=== PATIENT | male | born 1940 | race Caucasian/White ===

== ENCOUNTER 2017-03-20 06:53 | Day surgery (SDC) | payer MEDICARE, OTHER ==
[2017-03-19 13:17] LABS: Urine RBC None Seen /hpf (0 - 3)
[2017-03-19 13:25] LABS: Basophils # (auto) 0 uL; Basophils % (auto) 0.5 % (0.0-2.0); Eosinophils # (auto) 0.4 uL; Eosinophils % (auto) 4.7 % (0.0-7.0); Hematocrit 41.8 % (41.0-53.0); Lymphocytes % (auto) 24.3 % (10.0-50.0); Mean Corpuscular Hemoglobin 29.6 pg (28.0-32.0); Mean Corpuscular Hgb Conc. 33.4 g/dL (32.0-36.0); Mean Corpuscular Volume 88.7 fL (80.0-100.0); Mean Platelet Volume 8.3 fL (7.4-10.4); Monocytes # (auto) 0.8 uL; Monocytes % (auto) 9.3 % (0.0-12.0); Neutrophils # (auto) 5.1 uL; Neutrophils % (auto) 61.2 % (37.0-80.0); Platelet Count (auto) 467 10^3/uL (140-450); Red Cell Distribution Width 15.3 % (11.6-16.0); White Blood Cell 8.4 10^3/uL (4.4-10.8)
[2017-03-19 13:34] LABS: Urine Bilirubin Negative (Negative); Urine Blood Negative /uL (Negative); Urine Ca Oxalate Crystal FEW (None Seen); Urine Color Yellow (Yellow); Urine Glucose Normal (Normal); Urine Hyaline Cast FEW /lpf (0 - 2); Urine Ketone Negative (Negative); Urine Mucus FEW (None Seen); Urine Nitrite Negative (Negative); Urine Squamous Epithelial Cell FEW /hpf (<5); Urine Urobilinogen Normal (Negative)
[2017-03-19 13:40] LABS: INR 1.09 (0.9-1.15); Prothrombin Time 11.8 sec (9.37-12.3)
[2017-03-19 14:06] LABS: Albumin 2.9 g/dL (3.4-5.0); BUN/Creatinine Ratio 17.7; Bilirubin, Total 0.5 mg/dL (0.2-1.0); Calcium 9.5 mg/dL (8.5-10.1); Potassium 3.6 mmol/L (3.5-5.1); Total Protein 7.8 g/dL (6.4-8.2)
[~2017-03-20] VITALS: Ht 172.7 cm; Wt 74.8 kg
[~2017-03-20 06:53] MED LIST: AMLO5TAB2 PO; BUPR75TA9 PO; DONE10TA37 PO; FAMO-12 PO; HYDR-4663 PO; MORP30TA PO; MULTCHW3 OR; OMEG100078 PO
[2017-03-20] MEDS ORDERED: ceFAZolin 1GM/50ML D5W 50 ML IV ONE (07:45)
[2017-03-20] MEDS ORDERED: fentaNYL CITRATE 100 MCG/2 ML VL ONE ×2 (08:43→09:21)
[2017-03-20] MEDS ORDERED: MIDAZOLAM HCL 1MG/1ML-2 ML VIAL ONE ×2 (08:44→09:21)
[2017-03-20] MEDS ORDERED: ONDANSETRON HCL 4 MG/2 ML VIAL ONE (08:44)
[2017-03-20] MEDS ORDERED: PROPOFOL 10 MG/ML 20 ML IV ONE ×2 (08:44→09:31)
[2017-03-20] MEDS ORDERED: BUPIVACAINE 0.75% INJ 10ML MPV SDV IJ ONE (09:11)
[2017-03-20] MEDS ORDERED: ceFAZolin 1GM VL ONE (09:11)
[2017-03-20] MEDS ORDERED: NEOMYCIN-BACITRACIN-POLYM 15GM TOP OINT TOP ONE (09:11)
[2017-03-20] MEDS ORDERED: MEPERIDINE HCL (50 MG/ML) 1 ML VIAL ONE (09:21)
[2017-03-20] MEDS ORDERED: DEXAMETHASONE SOD PHOS 10MG/1ML VIAL INJ ONE (09:31)
[2017-03-20] MEDS ORDERED: methylPREDNISolone ACETATE 80 MG/ML VL ONE (09:33)
[2017-03-20] MEDS ORDERED: BUPIVACAINE W/ EPINEPH 0.25% INJ 50ML MDV ONE (09:33)
[2017-03-20] MEDS ORDERED: MORPHINE SULF INJ 2 MG/ML SYRINGE 1ML IV PRN (10:00)
[2017-03-20] MEDS ORDERED: KETOROLAC TROMETH 30 MG/ML 1ML VIAL IV ONE (10:00)
[2017-03-20] MEDS ORDERED: ONDANSETRON HCL 4 MG/2 ML VIAL IV ONE (10:00)
[2017-03-20] MEDS ORDERED: ePHEDrine SULFATE 50 MG/ML AMP IV PRN (10:00)
[2017-03-20] MEDS ORDERED: HYDROmorphone HCL 2 MG/ML VL IV PRN (10:00)
[2017-03-20] MEDS ORDERED: LABETALOL HCL 5 MG/ML 4ML SYRINGE IV PRN (10:00)
[2017-03-20] MEDS ORDERED: MIDAZOLAM HCL 1MG/1ML-2 ML VIAL IV PRN (10:00)
[2017-03-20 11:24] VITALS: BP 135/74
== END 2017-03-20 11:34 | disposition home or self-care (01) ==
LOC: SUR 06:53
PROVIDERS: ATTEND Podiatrist Foot & Ankle Surgery
DX: M65.871 Other synovitis and tenosynovitis, right ankle and foot (principal); M94.8X7 Other specified disorders of cartilage, ankle and foot; F41.9 Anxiety disorder, unspecified; F32.9 Major depressive disorder, single episode, unspecified; Z87.891 Personal history of nicotine dependence
CPT/HCPCS: 29895; 36415; 80053; 81001; 85025; 85610; 85730; 88305; 93306; J0690; J1040; J1100; J2175; J2250; J2405; J2704; J3010; J3490; L3260; V2790

== ENCOUNTER → 2017-05-01 | Outpatient (CLI) | payer MEDICARE, OTHER | END | disposition home or self-care (01) | LOC: Rad HDHVI 09:01 | PROVIDERS: ATTEND Internal Medicine Cardiovascular Disease | DX: I50.23 Acute on chronic systolic (congestive) heart failure (principal) | CPT/HCPCS: 93306 ==

== ENCOUNTER → 2017-05-17 | Outpatient (CLI) | payer MEDICARE, OTHER ==
[~2017-05-17] MED LIST changes: +READI-CAT 2 (BARIUM SULF)(VANILLA SMOOTHIE) 450ML ONE
== END | disposition home or self-care (01) ==
LOC: Rad HDHVI 08:53
PROVIDERS: ATTEND Internal Medicine Cardiovascular Disease
DX: R10.9 Unspecified abdominal pain (principal); Z79.1 Long term (current) use of non-steroidal anti-inflammatories (NSAID); Z79.82 Long term (current) use of aspirin
CPT/HCPCS: 74176

== ENCOUNTER 2017-09-11 14:37 | Emergency (ER) | payer MEDICARE, OTHER ==
[~2017-09-11] VITALS: Ht 172.7 cm; Wt 75.7 kg
[~2017-09-11 14:37] MED LIST changes: -HYDR-4663 PO; +HYDR-4683 PO; -READI-CAT 2 (BARIUM SULF)(VANILLA SMOOTHIE) 450ML ONE
[2017-09-11 15:05] VITALS: BP 142/75
[2017-09-11 15:38] LABS: Basophils # (auto) 0.1 uL; Basophils % (auto) 0.7 % (0.0-2.0); Eosinophils # (auto) 0.4 uL; Eosinophils % (auto) 5.9 % (0.0-7.0); Hematocrit 40.1 % (41.0-53.0); Hemoglobin 13.5 g/dL (13.5-17.5); Lymphocytes # (auto) 1.6 uL; Lymphocytes % (auto) 21.2 % (10.0-50.0); Mean Corpuscular Hemoglobin 29.9 pg (28.0-32.0); Mean Corpuscular Hgb Conc. 33.6 g/dL (32.0-36.0); Mean Corpuscular Volume 89.1 fL (80.0-100.0); Monocytes # (auto) 0.7 uL; Monocytes % (auto) 9.1 % (0.0-12.0); Neutrophils # (auto) 4.6 uL; Neutrophils % (auto) 63.1 % (37.0-80.0); Nucleated Red Blood Cells % 0.1 %; Platelet Count (auto) 200 10^3/uL (140-450); Red Cell Distribution Width 15.4 % (11.8-14.3); White Blood Cell 7.4 10^3/uL (4.4-10.8)
[2017-09-11 15:54] LABS: Alanine Aminotransferase 24 U/L (16-61); Albumin 2.6 g/dL (3.4-5.0); Anion Gap 9 (5-15); Aspartate Aminotransferase 20 U/L (15-37); BUN/Creatinine Ratio 19.2; Blood Urea Nitrogen 19 mg/dL (7-18); Carbon Dioxide 28 mmol/L (21-32); Chloride 100 mmol/L (98-107); GFR African American 95 mL/min; GFR Non-African American 78 mL/min; Glucose 113 mg/dL (74-106); Potassium 3.3 mmol/L (3.5-5.1); Sodium 137 mmol/L (136-145)
[2017-09-11 15:59] LABS: Alkaline Phosphatase 102 U/L (45-117); Bilirubin, Total 0.4 mg/dL (0.2-1.0); Total Protein 6.7 g/dL (6.4-8.2)
== END 2017-09-11 16:23 | disposition left against medical advice (07) ==
LOC: ER 14:37 → EDBD 14:37 → ER 16:21
DX: R53.1 Weakness (principal); R42 Dizziness and giddiness; Z53.21 Procedure and treatment not carried out due to patient leaving prior to being seen by health care provider
CPT/HCPCS: 36415; 80053; 83735; 84484; 85025; 93005

== ENCOUNTER → 2017-09-25 | Outpatient (CLI) | payer MEDICARE, OTHER ==
[~2017-09-25] MED LIST changes: +ASPI81TA27 PO; +KETOROLAC TROMETH 60MG/2ML VIAL IM ONE
[2017-09-25 15:44] VITALS: BP 142/62
[2017-09-25 15:55] VITALS: BP 109/73
== END | disposition home or self-care (01) ==
LOC: CHF HDHVI 14:55
PROVIDERS: ATTEND Internal Medicine Cardiovascular Disease
DX: I70.0 Atherosclerosis of aorta (principal); R06.02 Shortness of breath
CPT/HCPCS: 71020; 96372; G0463; J1885

== ENCOUNTER 2017-09-26 21:20 | Emergency (ER) | payer MEDICARE, OTHER ==
[~2017-09-26] VITALS: Ht 172.7 cm; Wt 83.9 kg
[~2017-09-26 21:20] MED LIST changes: -ASPI81TA27 PO; -KETOROLAC TROMETH 60MG/2ML VIAL IM ONE
[2017-09-26] MEDS ORDERED: ASPI81TA27 PO (22:06)
[2017-09-26 22:44] LABS: Basophils # (auto) 0.1 uL; Basophils % (auto) 0.7 % (0.0-2.0); Eosinophils # (auto) 0.4 uL; Eosinophils % (auto) 3.4 % (0.0-7.0); Hematocrit 44.1 % (41.0-53.0); Hemoglobin 14.7 g/dL (13.5-17.5); Lymphocytes # (auto) 2.7 uL; Lymphocytes % (auto) 21.7 % (10.0-50.0); Mean Corpuscular Hgb Conc. 33.4 g/dL (32.0-36.0); Mean Corpuscular Volume 89.8 fL (80.0-100.0); Mean Platelet Volume 8.2 fL (6.9-10.8); Monocytes # (auto) 1.1 uL; Monocytes % (auto) 8.7 % (0.0-12.0); Neutrophils # (auto) 8.1 uL; Neutrophils % (auto) 65.5 % (37.0-80.0); Nucleated Red Blood Cells % 0.1 %; Platelet Count (auto) 263 10^3/uL (140-450); Red Cell Distribution Width 15.3 % (11.8-14.3); White Blood Cell 12.4 10^3/uL (4.4-10.8)
[2017-09-26 23:05] LABS: Albumin 3.2 g/dL (3.4-5.0); Anion Gap 8 (5-15); Aspartate Aminotransferase 28 U/L (15-37); BUN/Creatinine Ratio 18.3; Blood Urea Nitrogen 19 mg/dL (7-18); Calcium 9.1 mg/dL (8.5-10.1); Carbon Dioxide 28 mmol/L (21-32); Chloride 106 mmol/L (98-107); GFR African American 89 mL/min; GFR Non-African American 74 mL/min; Glucose 95 mg/dL (74-106); Potassium 3.6 mmol/L (3.5-5.1); Sodium 142 mmol/L (136-145)
[2017-09-26 23:07] LABS: Lactic Acid w/Reflex 2.1 mmol/L (0.4-2.0)
[2017-09-26 23:09] LABS: Alkaline Phosphatase 104 U/L (45-117); Bilirubin, Total 0.3 mg/dL (0.2-1.0); Total Protein 7.7 g/dL (6.4-8.2)
[2017-09-26 23:14] LABS: REFLEX LACTIC ACID YES OR NO YES
[2017-09-26 23:16] LABS: B-Type Natriuretic Peptide 33.79 pg/mL (0-100)
[2017-09-26 23:18] LABS: Temperature: 22.3 C (20.0-25.0)
[2017-09-27] MEDS ORDERED: LORazepam 0.5 MG TAB PO ONE (01:15)
[2017-09-27 03:59] VITALS: BP 117/62
== END 2017-09-27 04:21 | disposition home or self-care (01) ==
LOC: ER 21:20
DX: F41.9 Anxiety disorder, unspecified (principal); I10 Essential (primary) hypertension; F32.9 Major depressive disorder, single episode, unspecified; F03.90 Unspecified dementia, unspecified severity, without behavioral disturbance, psychotic disturbance, mood disturbance, and anxiety; E78.5 Hyperlipidemia, unspecified; I25.2 Old myocardial infarction; Z79.82 Long term (current) use of aspirin; Z86.73 Personal history of transient ischemic attack (TIA), and cerebral infarction without residual deficits
CPT/HCPCS: 36415; 71020; 80053; 83605; 83880; 84484; 85025; 87040; 93005

== ENCOUNTER → 2017-12-26 | Outpatient (CLI) | payer MEDICARE, OTHER ==
[~2017-12-26] VITALS: Ht 172.7 cm; Wt 74.4 kg
[~2017-12-26] MED LIST changes: +ASPI81TA27 PO; -DONE10TA37 PO; +DONE10TA40 PO
== END | disposition home or self-care (01) ==
LOC: Rad HDHVI 13:58
PROVIDERS: ATTEND Internal Medicine Cardiovascular Disease
DX: I10 Essential (primary) hypertension (principal); J44.9 Chronic obstructive pulmonary disease, unspecified; R07.89 Other chest pain; G47.30 Sleep apnea, unspecified; R00.2 Palpitations; M79.7 Fibromyalgia; Z79.899 Other long term (current) drug therapy
CPT/HCPCS: 78452; 93017; 96374; A9500

== ENCOUNTER → 2018-01-01 | Outpatient (CLI) | payer MEDICARE, OTHER | END | disposition home or self-care (01) | LOC: Rad HDHVI 08:21 | PROVIDERS: ATTEND Internal Medicine Cardiovascular Disease | DX: R07.89 Other chest pain (principal); R00.2 Palpitations | CPT/HCPCS: 93306 ==

== ENCOUNTER → 2018-01-03 | Outpatient (CLI) | payer MEDICARE, OTHER ==
[~2018-01-03] MED LIST changes: +READI-CAT 2 (BARIUM SULF)(VANILLA SMOOTHIE) 450ML ONE
== END | disposition home or self-care (01) ==
LOC: Rad HDHVI 11:53
PROVIDERS: ATTEND Internal Medicine Cardiovascular Disease
DX: K57.30 Diverticulosis of large intestine without perforation or abscess without bleeding (principal); I71.4 Abdominal aortic aneurysm, without rupture; K44.9 Diaphragmatic hernia without obstruction or gangrene; K40.90 Unilateral inguinal hernia, without obstruction or gangrene, not specified as recurrent
CPT/HCPCS: 74176

== ENCOUNTER → 2018-01-08 | Outpatient (CLI) | payer MEDICARE, OTHER ==
[~2018-01-08] MED LIST changes: -READI-CAT 2 (BARIUM SULF)(VANILLA SMOOTHIE) 450ML ONE
[2018-01-08 16:25] LABS: BUN/Creatinine Ratio 20.9; Calcium 8.2 mg/dL (8.5-10.1); Potassium 3.6 mmol/L (3.5-5.1)
[2018-01-08 16:28] LABS: Basophils # (auto) 0.1 uL; Basophils % (auto) 0.6 % (0.0-2.0); Eosinophils # (auto) 0.7 uL; Eosinophils % (auto) 8.2 % (0.0-7.0); Hematocrit 41.2 % (41.0-53.0); Hemoglobin 13.6 g/dL (13.5-17.5); Lymphocytes # (auto) 1.7 uL; Lymphocytes % (auto) 19.1 % (10.0-50.0); Mean Corpuscular Hemoglobin 30.2 pg (28.0-32.0); Mean Corpuscular Hgb Conc. 33.1 g/dL (32.0-36.0); Mean Corpuscular Volume 91.1 fL (80.0-100.0); Monocytes # (auto) 0.7 uL; Monocytes % (auto) 7.9 % (0.0-12.0); Neutrophils # (auto) 5.9 uL; Neutrophils % (auto) 64.2 % (37.0-80.0); Nucleated Red Blood Cells % 0.2 %; Platelet Count (auto) 227 10^3/uL (140-450); Red Blood Cells 4.52 10^6/uL (4.5-5.90); Red Cell Distribution Width 16.4 % (11.8-14.3); White Blood Cell 9.1 10^3/uL (4.4-10.8)
[2018-01-08 17:15] LABS: INR 1.03 (0.9-1.15); Partial Thromboplastin Time 22.2 sec (22.64-33.71); Prothrombin Time 11.2 sec (9.37-12.3)
== END | disposition home or self-care (01) ==
LOC: LAB 11:44
PROVIDERS: ATTEND Internal Medicine Cardiovascular Disease
DX: Z01.812 Encounter for preprocedural laboratory examination (principal); I10 Essential (primary) hypertension; D64.9 Anemia, unspecified; N39.0 Urinary tract infection, site not specified; R79.1 Abnormal coagulation profile
CPT/HCPCS: 36415; 80048; 85025; 85610; 85730; 87086; 87088

== ENCOUNTER 2018-08-11 06:06 | Emergency (ER) | payer MEDICARE, OTHER ==
[~2018-08-11] VITALS: Ht 172.7 cm; Wt 81.2 kg
[~2018-08-11 06:06] MED LIST changes: -KETOROLAC TROMETH 30 MG/ML 1ML VIAL IV ONE; -KETOROLAC TROMETH 60MG/2ML VIAL IM ONE; -MAGNESIUM SULFATE 1GM/100ML 100 ML IV ONE; -MAGNESIUM SULFATE 1GM/100ML 100 ML IV SCH; -MVI in SODIUM CHLORIDE 0.9% 1,000 ML IVB ONE; -MVI in SODIUM CHLORIDE 0.9% 1,010 ML ONE; -ONDANSETRON HCL 4 MG/2 ML VIAL IV ONE; -ONDANSETRON HCL 4 MG/2 ML VIAL ONE
[2018-08-11 07:08] LABS: Basophils # (auto) 0.1 uL; Basophils % (auto) 0.7 % (0.0-2.0); Eosinophils # (auto) 0.4 uL; Eosinophils % (auto) 3.6 % (0.0-7.0); Hematocrit 48.3 % (41.0-53.0); Hemoglobin 16.1 g/dL (13.5-17.5); Lymphocytes # (auto) 2.3 uL; Lymphocytes % (auto) 21.8 % (10.0-50.0); Mean Corpuscular Hemoglobin 29.5 pg (28.0-32.0); Mean Corpuscular Hgb Conc. 33.4 g/dL (32.0-36.0); Mean Corpuscular Volume 88.3 fL (80.0-100.0); Monocytes # (auto) 0.9 uL; Monocytes % (auto) 8.7 % (0.0-12.0); Neutrophils % (auto) 65.2 % (37.0-80.0); Platelet Count (auto) 244 10^3/uL (140-450); Red Blood Cells 5.47 10^6/uL (4.5-5.90); Red Cell Distribution Width 15.3 % (11.8-14.3); White Blood Cell 10.7 10^3/uL (4.4-10.8)
[2018-08-11 07:37] LABS: Alanine Aminotransferase 20 U/L (16-61); Albumin 3.2 g/dL (3.4-5.0); Anion Gap 10 (5-15); Aspartate Aminotransferase 18 U/L (15-37); BUN/Creatinine Ratio 13.9; Blood Urea Nitrogen 17 mg/dL (7-18); Calcium 8.3 mg/dL (8.5-10.1); Carbon Dioxide 24 mmol/L (21-32); Chloride 105 mmol/L (98-107); GFR African American 74 mL/min; GFR Non-African American 61 mL/min; Glucose 119 mg/dL (74-106); Sodium 139 mmol/L (136-145)
[2018-08-11 07:42] LABS: Alkaline Phosphatase 109 U/L (45-117); Bilirubin, Total 0.8 mg/dL (0.2-1.0); Total Protein 7.5 g/dL (6.4-8.2)
[2018-08-11] MEDS: LABETALOL HCL 5 MG/ML ML 20ML VIAL IV ONE (08:01)
[2018-08-11] MEDS: ASPirin 81 mg TAB PO ONE (08:11)
[2018-08-11] MEDS: cloNIDine HCL 0.1 MG TAB PO ONE (09:01)
[2018-08-11 10:03] VITALS: BP 132/73
== END 2018-08-11 10:05 | disposition home or self-care (01) ==
LOC: ER 06:08
DX: I10 Essential (primary) hypertension (principal); I25.2 Old myocardial infarction; G45.9 Transient cerebral ischemic attack, unspecified; Z90.89 Acquired absence of other organs; Z98.61 Coronary angioplasty status; Z79.899 Other long term (current) drug therapy
CPT/HCPCS: 36415; 71046; 80053; 83735; 84484; 85025; 96374

== ENCOUNTER → 2018-08-11 | Outpatient (CLI) | payer MEDICARE, OTHER ==
[~2018-08-11] MED LIST changes: +AMLO5TAB13 PO; -AMLO5TAB2 PO; +KETOROLAC TROMETH 30 MG/ML 1ML VIAL IV ONE; +KETOROLAC TROMETH 60MG/2ML VIAL IM ONE; +MAGNESIUM SULFATE 1GM/100ML 100 ML IV ONE; +MAGNESIUM SULFATE 1GM/100ML 100 ML IV SCH; +MVI in SODIUM CHLORIDE 0.9% 1,000 ML IVB ONE; +MVI in SODIUM CHLORIDE 0.9% 1,010 ML ONE; +ONDANSETRON HCL 4 MG/2 ML VIAL IV ONE; +ONDANSETRON HCL 4 MG/2 ML VIAL ONE
[2018-08-11 15:00] VITALS: BP 123/64
[2018-08-11 16:22] LABS: Basophils # (auto) 0.1 uL; Basophils % (auto) 0.5 % (0.0-2.0); Eosinophils # (auto) 0.1 uL; Hematocrit 44.4 % (41.0-53.0); Hemoglobin 14.9 g/dL (13.5-17.5); Lymphocytes # (auto) 1.9 uL; Lymphocytes % (auto) 18.6 % (10.0-50.0); Mean Corpuscular Hemoglobin 29.7 pg (28.0-32.0); Mean Corpuscular Hgb Conc. 33.6 g/dL (32.0-36.0); Mean Corpuscular Volume 88.5 fL (80.0-100.0); Monocytes # (auto) 0.7 uL; Monocytes % (auto) 6.4 % (0.0-12.0); Neutrophils # (auto) 7.5 uL; Neutrophils % (auto) 73.5 % (37.0-80.0); Nucleated Red Blood Cells % 0.1 %; Platelet Count (auto) 234 10^3/uL (140-450); Red Blood Cells 5.02 10^6/uL (4.5-5.90); Red Cell Distribution Width 15.3 % (11.8-14.3); Urine Blood Negative /uL (Negative); White Blood Cell 10.2 10^3/uL (4.4-10.8)
[2018-08-11 16:31] LABS: BUN/Creatinine Ratio 14.5; Calcium 7.9 mg/dL (8.5-10.1); Potassium 4.6 mmol/L (3.5-5.1)
== END | disposition home or self-care (01) ==
LOC: CHF HDHVI 12:34
PROVIDERS: ATTEND Internal Medicine Cardiovascular Disease
DX: D64.9 Anemia, unspecified (principal); I10 Essential (primary) hypertension; N39.0 Urinary tract infection, site not specified; Z79.899 Other long term (current) drug therapy
CPT/HCPCS: 36415; 80048; 81003; 85025; 87086; 96365; 96366; 96368; 96372; 96375; G0463; J1885; J2405; J3411; J3475

== ENCOUNTER 2019-01-27 19:35 | Emergency (ER) | payer MEDICARE, OTHER ==
[~2019-01-27] VITALS: Ht 172.7 cm; Wt 77.1 kg
[2019-01-27 21:48] LABS: Basophils # (auto) 0 uL; Basophils % (auto) 0.4 % (0.0-2.0); Eosinophils # (auto) 0.4 uL; Hematocrit 39.1 % (41.0-53.0); Hemoglobin 12.8 g/dL (13.5-17.5); Lymphocytes # (auto) 1.1 uL; Lymphocytes % (auto) 9.9 % (10.0-50.0); Mean Corpuscular Hemoglobin 28.6 pg (28.0-32.0); Mean Corpuscular Hgb Conc. 32.7 g/dL (32.0-36.0); Mean Corpuscular Volume 87.5 fL (80.0-100.0); Monocytes # (auto) 0.9 uL; Neutrophils # (auto) 8.6 uL; Neutrophils % (auto) 77.7 % (37.0-80.0); Platelet Count (auto) 292 10^3/uL (140-450); Red Blood Cells 4.47 10^6/uL (4.5-5.90); Red Cell Distribution Width 16.5 % (11.8-14.3); White Blood Cell 11.1 10^3/uL (4.4-10.8)
[2019-01-27 22:06] LABS: Alanine Aminotransferase 16 U/L (16-61); Albumin 2.5 g/dL (3.4-5.0); Anion Gap 8 (5-15); Aspartate Aminotransferase 16 U/L (15-37); BUN/Creatinine Ratio 17.6; Blood Urea Nitrogen 18 mg/dL (7-18); Calcium 8.3 mg/dL (8.5-10.1); Carbon Dioxide 26 mmol/L (21-32); Chloride 107 mmol/L (98-107); GFR African American 91 mL/min; GFR Non-African American 75 mL/min; Glucose 90 mg/dL (74-106); Potassium 4.3 mmol/L (3.5-5.1); Sodium 141 mmol/L (136-145)
[2019-01-27 22:09] LABS: Alkaline Phosphatase 128 U/L (45-117); Bilirubin, Total 0.5 mg/dL (0.2-1.0); INR 1.07 (0.9-1.15); Prothrombin Time 11.4 sec (9.27-12.13); Total Protein 7.1 g/dL (6.4-8.2)
[2019-01-27] MEDS ORDERED: IOHEXOL 350 MG/ML 100ML IJ ONE (22:27)
[2019-01-28 04:50] VITALS: BP 104/65
== END 2019-01-28 07:31 | disposition home or self-care (01) ==
LOC: EDBD 19:35 → ER 19:43
DX: M25.571 Pain in right ankle and joints of right foot (principal); I73.9 Peripheral vascular disease, unspecified; E78.5 Hyperlipidemia, unspecified; I10 Essential (primary) hypertension; I25.2 Old myocardial infarction; Z86.73 Personal history of transient ischemic attack (TIA), and cerebral infarction without residual deficits; Z98.61 Coronary angioplasty status; Z88.6 Allergy status to analgesic agent
CPT/HCPCS: 36415; 75635; 80053; 83880; 84484; 85025; 85379; 85610; 99284; Q9967

== ENCOUNTER 2019-02-09 07:23 | Inpatient (IN) | payer MEDICARE, OTHER ==
[2019-02-05 12:56] LABS: Basophils # (auto) 0 uL; Basophils % (auto) 0.4 % (0.0-2.0); Eosinophils # (auto) 0.5 uL; Eosinophils % (auto) 5.8 % (0.0-7.0); Hematocrit 39.2 % (41.0-53.0); Hemoglobin 12.5 g/dL (13.5-17.5); INR 1.07 (0.9-1.15); Lymphocytes # (auto) 1.2 uL; Lymphocytes % (auto) 14.4 % (10.0-50.0); Mean Corpuscular Hemoglobin 27.9 pg (28.0-32.0); Mean Corpuscular Hgb Conc. 31.9 g/dL (32.0-36.0); Mean Corpuscular Volume 87.4 fL (80.0-100.0); Monocytes # (auto) 0.7 uL; Monocytes % (auto) 8.9 % (0.0-12.0); Neutrophils # (auto) 5.7 uL; Neutrophils % (auto) 70.5 % (37.0-80.0); Nucleated Red Blood Cells % 0.1 %; Partial Thromboplastin Time 30.3 sec (23.78-33.04); Platelet Count (auto) 326 10^3/uL (140-450); Prothrombin Time 11.4 sec (9.27-12.13); Red Blood Cells 4.48 10^6/uL (4.5-5.90); Red Cell Distribution Width 16.7 % (11.8-14.3); White Blood Cell 8.1 10^3/uL (4.4-10.8)
[2019-02-05 13:03] LABS: BUN/Creatinine Ratio 13.8; Calcium 8.9 mg/dL (8.5-10.1); Potassium 4.7 mmol/L (3.5-5.1)
[2019-02-05 13:06] LABS: Urine Bacteria NONE SEEN /hpf (None Seen); Urine Blood Negative /uL (Negative); Urine Mucus FEW (None Seen); Urine Specific Gravity 1.026 (1.001-1.035); Urine WBC 3 /hpf (0 - 3)
[2019-02-05 13:10] LABS: Bilirubin, Total 0.4 mg/dL (0.2-1.0); Total Protein 7.2 g/dL (6.4-8.2)
[2019-02-05 13:15] LABS: Albumin 2.3 g/dL (3.4-5.0)
[~2019-02-09] VITALS: Ht 167.6 cm; Wt 79.8 kg
[~2019-02-09 07:23] MED LIST changes: -AMLO5TAB13 PO; -ASPI81TA27 PO; -BUPR75TA9 PO; -FAMO-12 PO; -HYDR-4683 PO; +HYDR-531 PO; -MORP30TA PO; -OMEG100078 PO; +ONDA4TAB5 PO
[2019-02-09] MEDS ORDERED: ceFAZolin 1GM/50ML 50 ML IV ONE (08:18)
[2019-02-09] MEDS ORDERED: ETOMIDATE (2MG/ML) 20ML VIAL IV ONE (08:34)
[2019-02-09] MEDS ORDERED: MIDAZOLAM HCL 1MG/1ML-2 ML VIAL ONE (08:34)
[2019-02-09] MEDS ORDERED: LIDOCAINE 1% (LOCAL ANESTH.) PF 5ml SDV ONE (09:20)
[2019-02-09] MEDS ORDERED: ROCURONIUM 10MG/ML 10ML VIAL IV ONE (09:24)
[2019-02-09] MEDS ORDERED: fentaNYL CITRATE 100 MCG/2 ML VL ONE (09:51)
[2019-02-09] MEDS ORDERED: hydrALAZINE HCL 20 MG/ML VL ONE (10:17)
[2019-02-09] MEDS ORDERED: NEOSTIGMINE 1 MG/ML INJ (10mg/10ML VIAL) ONE (11:48)
[2019-02-09] MEDS ORDERED: GLYCOPYRROLATE 0.2 MG/ML 1ML VIAL ONE (11:48)
[2019-02-09] MEDS ORDERED: MEPERIDINE HCL (50 MG/ML) 1 ML VIAL ONE (11:54)
[2019-02-09] MEDS ORDERED: HYDROmorphone HCL 2 MG/ML VL IV PRN ×2 (12:15→12:45)
[2019-02-09] MEDS ORDERED: OXYCODONE W/ ACETAMINOPHEN 5/325MG TABLET PO PRN (12:15)
[2019-02-09] MEDS ORDERED: MORPHINE SULF INJ 2 MG/ML SYRINGE 1ML IV PRN ×2 (12:15→13:00)
[2019-02-09] MEDS ORDERED: ONDANSETRON HCL 4 MG/2 ML VIAL IV PRN ×2 (12:15→13:00)
[2019-02-09] MEDS ORDERED: NITROGLYCERIN 0.4 MG SL TAB SL PRN ×2 (12:15→13:00)
[2019-02-09] MEDS ORDERED: HYDROmorphone HCL 2 MG/ML VL ONE (12:31)
[2019-02-09] MEDS: HYDROmorphone HCL 2 MG/ML VL IV PRN ×5 (12:35→18:29)
[2019-02-09] MEDS ORDERED: hydrALAZINE HCL 20 MG/ML VL IV PRN (12:45)
[2019-02-09] MEDS ORDERED: NALOXONE HCL 0.4 MG/ML VIAL IV PRN (12:45)
[2019-02-09] MEDS ORDERED: ONDANSETRON HCL 4 MG/2 ML VIAL IV ONE (12:45)
[2019-02-09] MEDS ORDERED: CYCLOBENZAPRINE HCL 10 MG TAB PO PRN (13:00)
[2019-02-09 15:00] VITALS: BP 166/96
--- NOTE | 2019-02-09 15:00 | NUR ---
Med/Surg admit from PACU FELISHA WILLIAMSON admitted to Med/Surg unit after SBAR received. Patient oriented to Nicolette Gill, primary RN, unit, room, bed, and unit policies regarding patient care and visiting hours. Patient placed on 2 LPM/NC, o2 saturation 96%. No signs of SOB/distress noted. Narvaez cath intact, patent and draining clear, pale yellow urine to gravity. Cast to right foot clean, dry and intact. Safety precautions in place including, bed set to lowest position/locked, bedside rails up x2, bed alarm on, call light within reach. Instructed patient to call for assistance. Patient verbalized understanding. Will continue to monitor q 1hr and prn.
[2019-02-09 16:00] VITALS: BP 166/96
[2019-02-09] MEDS: ceFAZolin 1GM/50ML 50 ML IV SCH (18:15)
[2019-02-09] MEDS: CLINDAMYCIN 600MG IV 50 ML IV SCH (18:18)
[2019-02-09] MEDS: TAMSULOSIN HYDROCHLORIDE 0.4 MG CAP PO SCH (18:19)
--- NOTE | 2019-02-09 19:30 | NUR ---
RECEIVED PATIENT IN BED, AAOX4. NO DISTRESS NOTED. AFEBRILE. MILD PAIN ON THE RIGHT ANKLE, BUT TOLERABLE. ELEVATED FOOT ON A PILLOW. NVS ON THE RIGHT FOOT IS WNL. PATIENT IS ABLE TO TURN FROM SIDE TO SIDE. POCS DISCUSSED WITH PATIENT AND SHOWED UNDERSTANDING. BED KEPT ON LOWEST POSITION. SIDE RAILS UP. CALL LIGHT/TABLE IN REACH. KEPT COMFORTABLE.
--- NOTE | 2019-02-09 19:48 | NUR ---
ENDORSED CARE TO DAVE THORNTON.
[2019-02-09] MEDS: LACTATED RINGER'S 1,000 ML IV SCH ×2 (19:53→21:33)
[2019-02-09] MEDS: DONEPEZIL HYDROCHLORIDE 5 MG TAB PO SCH (21:32)
[2019-02-09] MEDS: DOCUSATE SOD 100 MG CAP PO SCH (21:32)
[2019-02-09] MEDS: OXYCODONE W/ ACETAMINOPHEN 5/325MG TABLET PO PRN (21:32)
[2019-02-09 22:00] VITALS: BP 150/97
[2019-02-10] MEDS: ceFAZolin 1GM/50ML 50 ML IV SCH (00:01)
[2019-02-10] MEDS: CLINDAMYCIN 600MG IV 50 ML IV SCH ×2 (00:01→05:30)
[2019-02-10 05:00] VITALS: BP 128/74
[2019-02-10] MEDS: LACTATED RINGER'S 1,000 ML IV SCH ×2 (05:30→18:11)
[2019-02-10] MEDS: OXYCODONE W/ ACETAMINOPHEN 5/325MG TABLET PO PRN ×3 (05:31→20:48)
--- NOTE | 2019-02-10 06:08 | NUR ---
ON BED, ASLEEP. STABLE. NO DISTRESS NOTED. FOR MORE CARE AND MANAGEMENT.
--- NOTE | 2019-02-10 07:25 | NUR ---
OPENING NOTES ASSUMED CARE OF PT. PT IS LAYING ON BED, HOB LOW-FOWLERS. A&O X4. ON 2 LPM/NC, O2 SATURATION 95%. NO SIGNS OF SOB/DISTRESS NOTED. TORRES CATH INTACT, PATENT AND DRAINING CLEAR STRAW YELLOW URINE TO GRAVITY. CAST TO RIGHT FOOT CLEAN, DRY AND INTACT. SAFETY PRECAUTIONS IN PLACE INCLUDING, BED SET TO LOWEST POSITION/LOCKED. BEDSIDE RAILS UP X2. BED ALARM ON. CALL LIGHT WITHIN REACH. INSTRUCTED PT TO CALL FOR ASSISTANCE. DISCUSSED POC WITH PT. PT VERBALIZED UNDERSTANDING. WILL CONTINUE TO MONITOR Q 1HR AND PRN.
[2019-02-10 07:34] VITALS: BP 91/65
[2019-02-10 08:20] LABS: Basophils # (auto) 0 uL; Basophils % (auto) 0.3 % (0.0-2.0); Eosinophils # (auto) 0 uL; Eosinophils % (auto) 0.3 % (0.0-7.0); Hematocrit 33.1 % (41.0-53.0); Hemoglobin 10.9 g/dL (13.5-17.5); Lymphocytes % (auto) 9.1 % (10.0-50.0); Mean Corpuscular Hgb Conc. 32.9 g/dL (32.0-36.0); Mean Corpuscular Volume 85.3 fL (80.0-100.0); Monocytes # (auto) 1.4 uL; Monocytes % (auto) 12.4 % (0.0-12.0); Neutrophils # (auto) 8.9 uL; Neutrophils % (auto) 77.9 % (37.0-80.0); Platelet Count (auto) 297 10^3/uL (140-450); Red Blood Cells 3.88 10^6/uL (4.5-5.90); Red Cell Distribution Width 17.5 % (11.8-14.3); White Blood Cell 11.4 10^3/uL (4.4-10.8)
[2019-02-10 08:37] LABS: BUN/Creatinine Ratio 10.6; Calcium 7.6 mg/dL (8.5-10.1); Potassium 3.9 mmol/L (3.5-5.1)
[2019-02-10 08:40] LABS: Bilirubin, Total 0.9 mg/dL (0.2-1.0); Total Protein 6.4 g/dL (6.4-8.2)
[2019-02-10] MEDS: DOCUSATE SOD 100 MG CAP PO SCH ×2 (09:39→21:51)
[2019-02-10] MEDS: HCTZ 25 MG TAB PO SCH (09:40)
[2019-02-10] MEDS: amLODIPine BESYLATE 5 MG TAB PO SCH (10:00)
[2019-02-10 11:28] VITALS: BP 143/77
--- NOTE | 2019-02-10 14:24 | NUR ---
Pt. is a 78 year old, alert and oriented male who resides with his . Pt. is able to function independently and states that his Selina prepares his meals. Pt. states he has a granddaughter who lives in the area. Pt.'s primary physician is Dr. Phelan and will be provided with transportation by his . Pt. will be returning home upon discharge. Addendum: 02/10/19 at 1434 by NED ODELL SS Amended: Links added.
[2019-02-10 16:43] VITALS: BP 133/73
[2019-02-10] MEDS: TAMSULOSIN HYDROCHLORIDE 0.4 MG CAP PO SCH (18:14)
[2019-02-10] MEDS: HYDROmorphone HCL 2 MG/ML VL IV PRN (18:15)
--- NOTE | 2019-02-10 19:10 | NUR ---
Opening Shift Note Bed side report with day RN Katherine Assumed care of patient, awake and alert. No S/S of distress/SOB or pain. Instructed on POC and to call for assist PRN, will continue to monitor for changes Q1hr and PRN. Bed locked and in lowest position, bed alarm, call light within reach. Patient right leg in cast, pt states feels sensation no complaint of numbness or tingling.
--- NOTE | 2019-02-10 19:37 | NUR ---
ENDORSED CARE TO DAVE WHITTAKER.
[2019-02-10] MEDS: DONEPEZIL HYDROCHLORIDE 5 MG TAB PO SCH (21:51)
--- NOTE | 2019-02-10 21:54 | NUR ---
Cooling Measures applied. Patient currently has temp of 100.1 , cooling measures in place.
[2019-02-10 22:00] VITALS: BP 114/66
--- NOTE | 2019-02-10 22:54 | NUR ---
REASSESS TEMP 98.9 pt will continue to monitor pt
[2019-02-11] MEDS: LACTATED RINGER'S 1,000 ML IV SCH ×2 (04:11→14:11)
[2019-02-11 05:00] VITALS: BP 149/86
[2019-02-11 07:11] LABS: Basophils # (auto) 0 uL; Basophils % (auto) 0.3 % (0.0-2.0); Eosinophils # (auto) 0.3 uL; Eosinophils % (auto) 2.1 % (0.0-7.0); Hematocrit 34.3 % (41.0-53.0); Lymphocytes # (auto) 1.7 uL; Lymphocytes % (auto) 14.3 % (10.0-50.0); Mean Corpuscular Hemoglobin 27.4 pg (28.0-32.0); Mean Corpuscular Volume 85.5 fL (80.0-100.0); Monocytes # (auto) 1.2 uL; Monocytes % (auto) 9.6 % (0.0-12.0); Neutrophils # (auto) 8.9 uL; Neutrophils % (auto) 73.7 % (37.0-80.0); Platelet Count (auto) 302 10^3/uL (140-450); Red Blood Cells 4.01 10^6/uL (4.5-5.90); Red Cell Distribution Width 17.3 % (11.8-14.3)
--- NOTE | 2019-02-11 07:20 | NUR ---
OPENING NOTES ASSUMED CARE OF PT. PT IS LAYING ON BED, HOB LOW-FOWLERS. A&O X4. ON 2 LPM/NC, O2 SATURATION 96%. NO SIGNS OF SOB/DISTRESS NOTED. TORRES CATH INTACT, PATENT AND DRAINING CLEAR STRAW YELLOW URINE TO GRAVITY. CAST TO RIGHT FOOT CLEAN, DRY AND INTACT. SAFETY PRECAUTIONS IN PLACE INCLUDING, BED SET TO LOWEST POSITION/LOCKED. BEDSIDE RAILS UP X2. BED ALARM ON. CALL LIGHT WITHIN REACH. INSTRUCTED PT TO CALL FOR ASSISTANCE. DISCUSSED POC WITH PT. PT VERBALIZED UNDERSTANDING. WILL CONTINUE TO MONITOR Q 1HR AND PRN.
[2019-02-11 07:35] LABS: Potassium 4.8 mmol/L (3.5-5.1)
[2019-02-11 07:43] LABS: BUN/Creatinine Ratio 14.5; Bilirubin, Total 0.6 mg/dL (0.2-1.0); Calcium 8.3 mg/dL (8.5-10.1); Total Protein 6.9 g/dL (6.4-8.2)
--- NOTE | 2019-02-11 08:41 | NUR ---
Pt is an alert and oriented male that resides with his spouse Selina in their own home. Pt has a fww in the home but is not on any home health services. Pt states he does not want placement after discharge and prefers to return home. Pt is receptive to home health services for physical therapy and medication management upon discharge. Additionally, pt states his is able to care for him and can transport him home. Will follow up with spouse regarding ability to do the above. Addendum: 02/12/19 at 0844 by BHAVNA ALAN Amended: Links added.
--- NOTE | 2019-02-11 08:51 | NUR ---
SPOKE WITH VALERY FROM [facility], PATIENTS WOUND CX IS POSITIVE FOR MRSA. Addendum: 02/11/19 at 1122 by Nicolette Gill RN WILL INFORM
[2019-02-11 09:00] VITALS: BP 153/70
[2019-02-11] MEDS: DOCUSATE SOD 100 MG CAP PO SCH ×2 (10:40→21:42)
[2019-02-11] MEDS: HCTZ 25 MG TAB PO SCH (10:40)
[2019-02-11] MEDS: amLODIPine BESYLATE 5 MG TAB PO SCH (10:41)
[2019-02-11] MEDS: RIVAROXABAN 10 MG TAB PO SCH (10:41)
[2019-02-11] MEDS: OXYCODONE W/ ACETAMINOPHEN 5/325MG TABLET PO PRN ×2 (10:43→17:46)
[2019-02-11 13:00] VITALS: BP 106/65
[2019-02-11 17:00] VITALS: BP 105/67
[2019-02-11] MEDS: TAMSULOSIN HYDROCHLORIDE 0.4 MG CAP PO SCH (17:45)
[2019-02-11] MEDS: CLINDAMYCIN 600MG IV 50 ML IV SCH (21:41)
[2019-02-11] MEDS: DONEPEZIL HYDROCHLORIDE 5 MG TAB PO SCH (21:42)
[2019-02-11 21:43] VITALS: BP 121/69
[2019-02-12] MEDS: LACTATED RINGER'S 1,000 ML IV SCH ×3 (00:11→22:00)
[2019-02-12] MEDS: HYDROmorphone HCL 2 MG/ML VL IV PRN (00:25)
--- NOTE | 2019-02-12 01:51 | NUR ---
Opening Shift Note Report received from RN GEORGIE Assumed care of patient, awake and alert. No S/S of distress/SOB or pain. Instructed on POC and to callfor assist PRN, will continue to monitor for changes Q1hr and PRN.
--- NOTE | 2019-02-12 01:52 | NUR ---
ENDORSED CARE TO DAVE WHITTAKER.
[2019-02-12 04:41] VITALS: BP 117/63
[2019-02-12] MEDS: CLINDAMYCIN 600MG IV 50 ML IV SCH (05:23)
[2019-02-12 06:45] LABS: Hematocrit 32.9 % (41.0-53.0); Hemoglobin 10.8 g/dL (13.5-17.5)
[2019-02-12 08:00] VITALS: BP 104/64
[2019-02-12 09:21] LABS: INR 1.21 (0.9-1.15); Prothrombin Time 12.8 sec (9.27-12.13)
[2019-02-12] MEDS: DOCUSATE SOD 100 MG CAP PO SCH ×2 (09:24→22:00)
[2019-02-12] MEDS: RIVAROXABAN 10 MG TAB PO SCH (09:24)
[2019-02-12] MEDS: amLODIPine BESYLATE 5 MG TAB PO SCH (09:24)
[2019-02-12] MEDS: HCTZ 25 MG TAB PO SCH (09:24)
--- NOTE | 2019-02-12 10:55 | NUR ---
PICC LINE RN AT BEDSIDE.
--- NOTE | 2019-02-12 12:08 | NUR ---
PICC line placement Patient/Patient significant other educated on need for PICC line placement. All risks and benefits explained and all questions and concerns addressed prior to procedure. Noted past medical history and allergies with no contraindications. INR and Plt counts within acceptable range. 4 fr PICC line inserted via right basilic vein using [employer]'s [employer] US and Tip Location System. Sterile technique with maximum barrier precautions utilized. Blood return obtained from the lumen and flushed easily with NS using proper technique. PICC secured with Stat-lock; biodisc and occlusive dressing applied. Stat portable chest x-ray obtained for PICC tip placement. *Baseline Arm Circumference 28cm. Internal length 40cm. External length 2cm. PICC lot # [id number]. Note: Placed easily x1 attempt by Marisel Chery RN
[2019-02-12] MEDS ORDERED: LIDOCAINE 1% (LOCAL ANESTH.) PF 5ml SDV ID ONE (12:15)
[2019-02-12] MEDS ORDERED: VANCOMYCIN PER PHARMACY 0 MG IV SCH (12:30)
--- NOTE | 2019-02-12 13:36 | NUR ---
OK to use PICC line Xray completed. PRIMARY RN NOTIFIED.
[2019-02-12] MEDS: VANCOMYCIN 1,250 MG in D5W 5% 250 ML IV SCH (13:52)
--- NOTE | 2019-02-12 16:15 | NUR ---
PT HAS TEMP 100.5. COOLING MEASURE INITIATED. DR. RODRIGUEZ PAGED. AWAITING RESPONSE.
--- NOTE | 2019-02-12 16:26 | NUR ---
OBTAINED NEW ORDER FROM DR. RODRIGUEZ. TYLENOL 650MG PO QID PRN. WILL CARRY OUT ORDER.
[2019-02-12] MEDS ORDERED: ACETAMINOPHEN 325 MG TAB PO PRN (16:30)
[2019-02-12 16:49] VITALS: BP 105/60
[2019-02-12] MEDS: TAMSULOSIN HYDROCHLORIDE 0.4 MG CAP PO SCH (17:55)
--- NOTE | 2019-02-12 18:10 | NUR ---
TEMP. 98.2. PT RESTING IN BED, GRANDDAUGHTER AT BEDSIDE. DENIED OF PAIN OR ANY DISCOMFORT AT THIS TIME. WILL CONTINUE CARE.
--- NOTE | 2019-02-12 19:45 | NUR ---
Opening shift note: Assumed care from day nurse. Patient is alert and oriented x 3. Patient denies any pain. no s/s of distress or sob. Narvaez is to gravity and patent drain yellow urine. Right leg cast is dry and intact and vascular status is within normal limits. Call light is within reach. Picc line to right upper arm is patent, clean and dry. Left 20g IV is leaking and will be Dc'd. Patient was instructed on poc and told to call for assistance as needed. Bed is locked and in lowest position with bed alarm on.
--- NOTE | 2019-02-12 20:35 | NUR ---
IV removal IV DC'd Left forearm 20G with clean sterile technique, catheter fully intact. Pressure dressing applied to site. Patient tolerated well.
[2019-02-12 22:00] VITALS: BP 138/78
[2019-02-12] MEDS: DONEPEZIL HYDROCHLORIDE 5 MG TAB PO SCH (22:00)
[2019-02-12] MEDS: SODIUM CHLOR 0.9% PF (SALINE LOCK) 10ML VIAL/SYR IV SCH (22:00)
[2019-02-13] MEDS: LACTATED RINGER'S 1,000 ML IV SCH ×3 (04:05→16:13)
[2019-02-13 05:00] VITALS: BP 111/59
--- NOTE | 2019-02-13 07:20 | NUR ---
CLOSING SHIFT NOTE: ENDORSED CARE TO DAY NURSE VAN. PATIENT STABLE AT THIS TIME. NO S/S OF DISTRESS OR SOB.
[2019-02-13 08:00] VITALS: BP 160/76
[2019-02-13 08:30] VITALS: BP 160/76
[2019-02-13] MEDS: amLODIPine BESYLATE 5 MG TAB PO SCH (09:55)
[2019-02-13] MEDS: HCTZ 25 MG TAB PO SCH (09:55)
[2019-02-13] MEDS: DOCUSATE SOD 100 MG CAP PO SCH ×2 (09:55→21:18)
[2019-02-13] MEDS: RIVAROXABAN 10 MG TAB PO SCH (09:56)
[2019-02-13] MEDS: SODIUM CHLOR 0.9% PF (SALINE LOCK) 10ML VIAL/SYR IV SCH ×2 (09:56→21:17)
--- NOTE | 2019-02-13 13:02 | NUR ---
NUTRITION ASSESSMENT NOTES Please refer to link notes of nutrition screen form filed under the intervention section of the plan of care for further details. Est. Needs: 1600 kcal to 2000 kcal (25-30 kcal/kgBW), 80 gms to 104 gms pro (1.0-1.3 gms/kgBW d/t severe hypoalbuminemia). Will continue to monitor pertinent labs and reassess nutrient need prn Thank you. Addendum: 02/13/19 at [address] Amended: Links added.
[2019-02-13 13:20] VITALS: BP 129/75
--- NOTE | 2019-02-13 14:01 | NUR ---
Per Selina Ortega, pt.'s spouse states that she can not provide him with assistance or proper care at this time. Selina feels that a SNF placement at [facility] would be best, because pt. is on bedrest and isolation. Pt. was secured a bed at [facility] and awaiting D/C orders. Per nurse Terrence Kaur will be conducting a debridement procedure on Saturday02/15/2019.
[2019-02-13] MEDS: VANCOMYCIN 1,250 MG in D5W 5% 250 ML IV SCH (15:22)
--- NOTE | 2019-02-13 15:48 | NUR ---
Addendum: Pt. requested to go to [facility]. Submitted pt.'s request and Beni from [facility] called to decline their request for placement because she stated pt. and his Selina were rude with staff. Beni also stated the pt. and his Selina were non compliant and left AMA. Addendum: 02/13/19 at 1554 by NED ALAN Amended: Links added.
[2019-02-13 17:05] VITALS: BP 127/62
[2019-02-13] MEDS: TAMSULOSIN HYDROCHLORIDE 0.4 MG CAP PO SCH (17:48)
--- NOTE | 2019-02-13 19:11 | NUR ---
Opening Shift Note Assumed care of patient, awake and alert. No S/S of distress/SOB or pain. Instructed on POC and to call for assist PRN, will continue to monitor for changes Q1hr and PRN. Side rails up x2. Bed locked in lowest position. Call light within reach.
--- NOTE | 2019-02-13 19:21 | NUR ---
CARE ENDORSED TO TAMMIE ACOSTA.
[2019-02-13] MEDS: HYDROmorphone HCL 2 MG/ML VL IV PRN (20:25)
[2019-02-13] MEDS: DONEPEZIL HYDROCHLORIDE 5 MG TAB PO SCH (21:17)
[2019-02-13 22:00] VITALS: BP 152/94
--- NOTE | 2019-02-14 02:29 | NUR ---
Rounds Patient in bed asleep with no signs of distress/sob/pain. Will continue to monitor.
[2019-02-14 05:00] VITALS: BP 116/64
--- NOTE | 2019-02-14 07:29 | NUR ---
Endorsed care to day shift RN. Patient in bed asleep with no signs of distress.
[2019-02-14 07:51] LABS: Albumin 1.8 g/dL (3.4-5.0); BUN/Creatinine Ratio 18.2; Calcium 8.1 mg/dL (8.5-10.1); Potassium 3.7 mmol/L (3.5-5.1)
[2019-02-14 07:54] LABS: Bilirubin, Total 0.4 mg/dL (0.2-1.0)
[2019-02-14 07:56] LABS: Basophils # (auto) 0.1 uL; Basophils % (auto) 0.5 % (0.0-2.0); Eosinophils # (auto) 0.4 uL; Eosinophils % (auto) 3.8 % (0.0-7.0); Hematocrit 32.6 % (41.0-53.0); Hemoglobin 10.7 g/dL (13.5-17.5); Lymphocytes # (auto) 1.6 uL; Lymphocytes % (auto) 14.4 % (10.0-50.0); Mean Corpuscular Hemoglobin 27.8 pg (28.0-32.0); Mean Corpuscular Hgb Conc. 32.7 g/dL (32.0-36.0); Mean Corpuscular Volume 84.9 fL (80.0-100.0); Monocytes # (auto) 0.9 uL; Monocytes % (auto) 8.5 % (0.0-12.0); Neutrophils # (auto) 7.9 uL; Neutrophils % (auto) 72.8 % (37.0-80.0); Platelet Count (auto) 313 10^3/uL (140-450); Red Blood Cells 3.84 10^6/uL (4.5-5.90); Red Cell Distribution Width 16.9 % (11.8-14.3); White Blood Cell 10.9 10^3/uL (4.4-10.8)
[2019-02-14 08:54] VITALS: BP 118/57
[2019-02-14] MEDS: HCTZ 25 MG TAB PO SCH (10:00)
[2019-02-14] MEDS: DOCUSATE SOD 100 MG CAP PO SCH ×2 (10:10→22:27)
[2019-02-14] MEDS: SODIUM CHLOR 0.9% PF (SALINE LOCK) 10ML VIAL/SYR IV SCH ×2 (10:10→22:27)
[2019-02-14] MEDS: amLODIPine BESYLATE 5 MG TAB PO SCH (10:11)
[2019-02-14] MEDS: OXYCODONE W/ ACETAMINOPHEN 5/325MG TABLET PO PRN ×2 (10:12→18:10)
[2019-02-14 12:26] VITALS: BP 107/53
[2019-02-14] MEDS: LACTATED RINGER'S 1,000 ML IV SCH ×2 (14:04→22:11)
[2019-02-14] MEDS: VANCOMYCIN 1,250 MG in D5W 5% 250 ML IV SCH (14:31)
[2019-02-14 16:52] VITALS: BP 95/50
[2019-02-14] MEDS: TAMSULOSIN HYDROCHLORIDE 0.4 MG CAP PO SCH (18:09)
--- NOTE | 2019-02-14 19:00 | NUR ---
Opening Shift Note Assumed care of patient, awake and alert. No S/S of distress/SOB or pain. Instructed on POC and to call for assist PRN, will continue to monitor for changes Q1hr and PRN.
[2019-02-14 22:00] VITALS: BP 121/61
[2019-02-14] MEDS: DONEPEZIL HYDROCHLORIDE 5 MG TAB PO SCH (22:26)
[2019-02-14] MEDS: HYDROmorphone HCL 2 MG/ML VL IV PRN (22:26)
[2019-02-15 05:03] VITALS: BP 120/71
[2019-02-15] MEDS ORDERED: LIDOCAINE HCL 2% TOP JELLY 5ML TOP ONE (07:31)
[2019-02-15] MEDS ORDERED: ONDANSETRON HCL 4 MG/2 ML VIAL ONE (07:31)
[2019-02-15] MEDS ORDERED: LIDOCAINE 2% (LOCAL ANESTH.) PF 5ml SDV ONE (07:31)
[2019-02-15] MEDS ORDERED: fentaNYL CITRATE 100 MCG/2 ML VL ONE (07:31)
[2019-02-15] MEDS ORDERED: MIDAZOLAM HCL 1MG/1ML-2 ML VIAL ONE (07:31)
[2019-02-15] MEDS ORDERED: PROPOFOL 10 MG/ML 20 ML IV ONE (07:31)
[2019-02-15] MEDS ORDERED: SODIUM CHLORIDE LOCK 10 ML ONE (07:31)
[2019-02-15] MEDS ORDERED: BACITRACIN INJ 50000 UNIT VIAL ONE (07:37)
--- NOTE | 2019-02-15 08:05 | NUR ---
patient off the unit.
[2019-02-15] MEDS ORDERED: MORPHINE SULF INJ 2 MG/ML SYRINGE 1ML IV PRN (08:45)
[2019-02-15] MEDS ORDERED: ONDANSETRON HCL 4 MG/2 ML VIAL IV PRN (08:45)
[2019-02-15] MEDS ORDERED: HYDROcodone-ACET 5/325MG TAB PO PRN (08:45)
[2019-02-15] MEDS ORDERED: NITROGLYCERIN 0.4 MG SL TAB SL PRN (08:45)
[2019-02-15] MEDS ORDERED: HYDROmorphone HCL 2 MG/ML VL IV PRN ×2 (08:45→09:00)
[2019-02-15 09:00] VITALS: BP 122/69
[2019-02-15] MEDS ORDERED: METOCLOPRAMIDE HCL 5MG/ml INJ 2ml VIAL IV ONE (09:00)
--- NOTE | 2019-02-15 09:06 | NUR ---
Received report from PACU, patient stable will be coming up.
[2019-02-15] MEDS: DOCUSATE SOD 100 MG CAP PO SCH ×4 (10:00→22:18)
[2019-02-15] MEDS: HCTZ 25 MG TAB PO SCH (11:33)
[2019-02-15] MEDS: SODIUM CHLOR 0.9% PF (SALINE LOCK) 10ML VIAL/SYR IV SCH ×2 (11:33→22:18)
[2019-02-15] MEDS: amLODIPine BESYLATE 5 MG TAB PO SCH (11:34)
[2019-02-15] MEDS: OXYCODONE W/ ACETAMINOPHEN 5/325MG TABLET PO PRN ×3 (11:39→22:19)
[2019-02-15] MEDS ORDERED: CLINDAMYCIN 600MG IV 50 ML IV SCH (12:00)
[2019-02-15] MEDS ORDERED: VANCOMYCIN 1,250 MG in D5W 5% 250 ML IV SCH (12:00)
[2019-02-15 13:59] VITALS: BP 140/62
[2019-02-15 17:00] VITALS: BP 120/64
[2019-02-15] MEDS: VANCOMYCIN 1,250 MG in D5W 5% 250 ML IV SCH (17:07)
--- NOTE | 2019-02-15 18:05 | NUR ---
RE: PHARMACY CALL RECEIVED CALL FROM PHARMACY AND SUGGESTED TO DISCONTINUE THE CLEOCIN, PATIENT ON ALREADY ON VANCO AND HAVE MRSA. WILL INFORM MD OF THE SUGGESTION .
--- NOTE | 2019-02-15 18:07 | NUR ---
ORDERS TO ASHUTOSH LINK FROM
[2019-02-15] MEDS: TAMSULOSIN HYDROCHLORIDE 0.4 MG CAP PO SCH (18:31)
[2019-02-15] MEDS: LACTATED RINGER'S 1,000 ML IV SCH (20:00)
[2019-02-15 22:00] VITALS: BP 137/68
[2019-02-15] MEDS: DONEPEZIL HYDROCHLORIDE 5 MG TAB PO SCH (22:18)
[2019-02-16] MEDS: LACTATED RINGER'S 1,000 ML IV SCH (04:44)
[2019-02-16 05:00] VITALS: BP 124/83
[2019-02-16 06:17] LABS: Basophils # (auto) 0.1 uL; Basophils % (auto) 0.5 % (0.0-2.0); Eosinophils # (auto) 0.5 uL; Eosinophils % (auto) 4.7 % (0.0-7.0); Hematocrit 31.9 % (41.0-53.0); Hemoglobin 10.4 g/dL (13.5-17.5); Lymphocytes # (auto) 1.8 uL; Lymphocytes % (auto) 16.2 % (10.0-50.0); Mean Corpuscular Hemoglobin 27.6 pg (28.0-32.0); Mean Corpuscular Hgb Conc. 32.4 g/dL (32.0-36.0); Mean Corpuscular Volume 84.9 fL (80.0-100.0); Monocytes # (auto) 1.1 uL; Monocytes % (auto) 9.7 % (0.0-12.0); Neutrophils # (auto) 7.7 uL; Neutrophils % (auto) 68.9 % (37.0-80.0); Platelet Count (auto) 319 10^3/uL (140-450); Red Blood Cells 3.76 10^6/uL (4.5-5.90); White Blood Cell 11.2 10^3/uL (4.4-10.8)
--- NOTE | 2019-02-16 08:29 | NUR ---
Opening Shift Note Assumed care of patient, awake and alert. No S/S of distress/SOB or pain. Instructed on POC,nursing routines and discharge plan to SNF and to call for assist PRN, will continue to monitor for changes Q1hr and PRN. Side rails up x2. Bed locked in lowest position. Call light within reach,patient [id number] instructed to call for assistance,verbalized understanding.
[2019-02-16 09:00] VITALS: BP 129/74
[2019-02-16] MEDS ORDERED: RIVAROXABAN 10 MG TAB PO SCH ×2 (10:00)
[2019-02-16] MEDS: DOCUSATE SOD 100 MG CAP PO SCH ×2 (10:00→10:50)
[2019-02-16] MEDS: amLODIPine BESYLATE 5 MG TAB PO SCH (10:51)
[2019-02-16] MEDS: HCTZ 25 MG TAB PO SCH (10:52)
[2019-02-16] MEDS: SODIUM CHLOR 0.9% PF (SALINE LOCK) 10ML VIAL/SYR IV SCH (10:53)
--- NOTE | 2019-02-16 11:54 | NUR ---
Pt. has been accepted at [facility] and will be followed by Dr. Lundy. Kathi at [facility] will be following up with transportation, tentatively set up for 4pm.
[2019-02-16 12:26] VITALS: BP 119/59
[2019-02-16] MEDS: VANCOMYCIN 1,250 MG in D5W 5% 250 ML IV SCH (12:32)
--- NOTE | 2019-02-16 13:43 | NUR ---
MD CALLED DR. ARCINIEGA CALLED,INFORMED OF MESSAGE FROM PHARMACY RE PATIENT RESISTANT TO CLINDAMYCIN AND INCREASE GABE FROM VANCOMYCIN INFORMED PATIENT TRANSFER TO SNF Around 4 pm,RECEIVED ORDER TO CONTINUE ALL MEDICATION AND ANCILLARY SERVICES ORDER.
--- NOTE | 2019-02-16 14:25 | NUR ---
ADIA WILLIAMSON NOTIFIED OF TRANSFER TO [facility]
--- NOTE | 2019-02-16 16:50 | NUR ---
[facility] AND CONTINUATION OF CARE
[2019-02-16 17:14] VITALS: BP 127/73
--- NOTE | 2019-02-16 17:20 | NUR ---
TRANSFERRED TO [facility] VIA GURNEY TRANSPORTED BY [facility],NO DISTRESS NO DISCOMFORT WITH PICC LINE TO RIGHT UPPER ARM INTACT AND TORRES CATHETER.
== END 2019-02-16 17:20 | DRG 463 ==
LOC: SUR 07:23 → EAST 16:10
PROVIDERS: ADMIT Orthopaedic Surgery; ATTEND Orthopaedic Surgery
PROC: 0QUG0JZ Supplement Right Tibia with Synthetic Substitute, Open Approach (ICD-10-PCS; 2019-02-09)
PROC: 02HV33Z Insertion of Infusion Device into Superior Vena Cava, Percutaneous Approach (ICD-10-PCS; 2019-02-09)
PROC: 0HRMXK3 Replacement of Right Foot Skin with Nonautologous Tissue Substitute, Full Thickness, External Approach (ICD-10-PCS; principal; 2019-02-09 09:34)
PROC: 0SPF0JZ Removal of Synthetic Substitute from Right Ankle Joint, Open Approach (ICD-10-PCS; 2019-02-09 09:34)
PROC: 2W0 Placement, Anatomical Regions, Change (ICD-10-PCS; 2019-02-15)
DX: T84.018A Broken internal joint prosthesis, other site, initial encounter (principal); E43 Unspecified severe protein-calorie malnutrition; T81.31XA Disruption of external operation (surgical) wound, not elsewhere classified, initial encounter; I10 Essential (primary) hypertension; F03.90 Unspecified dementia, unspecified severity, without behavioral disturbance, psychotic disturbance, mood disturbance, and anxiety; S82.301A Unspecified fracture of lower end of right tibia, initial encounter for closed fracture; Y83.8 Other surgical procedures as the cause of abnormal reaction of the patient, or of later complication, without mention of misadventure at the time of the procedure; B95.62 Methicillin resistant Staphylococcus aureus infection as the cause of diseases classified elsewhere; D64.9 Anemia, unspecified; I25.10 Atherosclerotic heart disease of native coronary artery without angina pectoris; M19.90 Unspecified osteoarthritis, unspecified site; F41.9 Anxiety disorder, unspecified; F31.9 Bipolar disorder, unspecified; Z91.19 Patient's noncompliance with other medical treatment and regimen; J44.9 Chronic obstructive pulmonary disease, unspecified; M81.0 Age-related osteoporosis without current pathological fracture; X58.XXXA Exposure to other specified factors, initial encounter; Z79.82 Long term (current) use of aspirin; Z82.49 Family history of ischemic heart disease and other diseases of the circulatory system; Y92.89 Other specified places as the place of occurrence of the external cause; Y93.89 Activity, other specified; Y99.8 Other external cause status; Z86.73 Personal history of transient ischemic attack (TIA), and cerebral infarction without residual deficits; Z68.28 Body mass index [BMI] 28.0-28.9, adult; Z90.49 Acquired absence of other specified parts of digestive tract; Z87.891 Personal history of nicotine dependence; Z95.5 Presence of coronary angioplasty implant and graft; I25.2 Old myocardial infarction
CPT/HCPCS: 36415; 36569; 71045; 73600; 76000; 80053; 80202; 81001; 85014; 85018; 85025; 85610; 85730; 86850; 86900; 86901; 87070; 87075; 87077; 87186; 87205; 93005; G0378; J0690; J2001; J2250; J2405; J2704; J3490; J7060

== ENCOUNTER 2021-09-20 17:42 | Inpatient (IN) | payer MEDICARE, OTHER ==
[~2021-09-20] VITALS: Ht 170.2 cm; Wt 67.4 kg
[~2021-09-20 17:42] MED LIST changes: -DONE10TA40 PO; +DONE1TAB88 PO; +ONDA-144 PO; -ONDA4TAB5 PO
[2021-09-20 18:46] LABS: Basophils # (auto) 0 10 ^3/uL (0-0.2); Basophils % (auto) 0.2 % (0.0-2.0); Eosinophils # (auto) 0.1 10 ^3/uL (0-0.8); Eosinophils % (auto) 0.9 % (0.0-7.0); Hematocrit 37.9 % (41.0-53.0); Hemoglobin 12.5 g/dL (13.5-17.5); Lymphocytes # (auto) 0.8 10 ^3/uL (0.4-5.4); Lymphocytes % (auto) 5.9 % (10.0-50.0); Mean Corpuscular Hemoglobin 29.5 pg (28.0-32.0); Mean Corpuscular Hgb Conc. 32.9 g/dL (32.0-36.0); Mean Corpuscular Volume 89.8 fL (80.0-100.0); Monocytes % (auto) 7.5 % (0.0-12.0); Neutrophils # (auto) 11.3 10 ^3/uL (1.6-8.6); Neutrophils % (auto) 85.5 % (37.0-80.0); Nucleated Red Blood Cells % 0.1 %; Red Blood Cells 4.22 10^6/uL (4.5-5.90); Red Cell Distribution Width 15.3 % (11.8-14.3); White Blood Cell 13.3 10^3/uL (4.4-10.8)
[2021-09-20 19:03] LABS: Calcium 8.2 mg/dL (8.5-10.1); Magnesium 2.8 mg/dL (1.6-2.6); Potassium 3.9 mmol/L (3.5-5.1)
[2021-09-20 19:08] LABS: INR 1.25 (0.9-1.15)
[2021-09-20 19:11] LABS: Albumin 1.8 g/dL (3.4-5.0); Bilirubin, Total 0.8 mg/dL (0.2-1.0); Total Protein 7.2 g/dL (6.4-8.2)
[2021-09-20] MEDS ORDERED: cefTRIAXone 1GM/50ML D5W 50 ML IV ONE (21:45)
[2021-09-20] MEDS ORDERED: DexAMETHasone SOD PHOS 10MG/1ML VIAL INJ IV ONE (21:45)
[2021-09-20] MEDS ORDERED: AZITHROMYCIN 500MG/ 250ML 250 ML IV ONE (22:00)
[2021-09-20] MEDS ORDERED: MORPHINE SULFATE INJECTION 2 MG/ML SYRG IV PRN (22:00)
[2021-09-20] MEDS ORDERED: ONDANSETRON HCL 4 MG/2 ML VIAL IV PRN (22:00)
[2021-09-20] MEDS ORDERED: ACETAMINOPHEN 325 MG TAB PO PRN (22:00)
[2021-09-20] MEDS ORDERED: NITROGLYCERIN 0.4 MG SL TAB SL PRN (22:00)
[2021-09-20 22:22] LABS: Urine Bacteria NONE SEEN /hpf (None Seen); Urine Blood Negative /uL (Negative); Urine Mucus FEW (None Seen); Urine Specific Gravity 1.042 (1.001-1.035); Urine WBC 1 /hpf (0 - 3)
[2021-09-20 23:32] VITALS: BP 137/75
[2021-09-21] MEDS: ASCORBIC ACID 500 MG TAB PO SCH ×2 (00:24→08:54)
[2021-09-21] MEDS: DONEPEZIL HYDROCHLORIDE 5 MG TAB PO SCH ×2 (00:24→22:14)
[2021-09-21 07:41] LABS: Basophils # (auto) 0 10 ^3/uL (0-0.2); Basophils % (auto) 0.1 % (0.0-2.0); Eosinophils # (auto) 0 10 ^3/uL (0-0.8); Hematocrit 35.6 % (41.0-53.0); Hemoglobin 11.7 g/dL (13.5-17.5); Lymphocytes # (auto) 0.6 10 ^3/uL (0.4-5.4); Mean Corpuscular Hemoglobin 29.4 pg (28.0-32.0); Mean Corpuscular Hgb Conc. 32.8 g/dL (32.0-36.0); Mean Corpuscular Volume 89.9 fL (80.0-100.0); Monocytes # (auto) 0.3 10 ^3/uL (0-1.3); Monocytes % (auto) 3.7 % (0.0-12.0); Neutrophils % (auto) 89.2 % (37.0-80.0); Red Blood Cells 3.96 10^6/uL (4.5-5.90); White Blood Cell 7.8 10^3/uL (4.4-10.8)
[2021-09-21 07:51] LABS: Potassium 4.5 mmol/L (3.5-5.1)
[2021-09-21 07:57] LABS: Albumin 1.7 g/dL (3.4-5.0); BUN/Creatinine Ratio 29.7; Bilirubin, Total 0.6 mg/dL (0.2-1.0); Calcium 7.7 mg/dL (8.5-10.1); Total Protein 5.7 g/dL (6.4-8.2)
[2021-09-21] MEDS: MEMANTINE HCL 5 MG TAB PO SCH (08:54)
[2021-09-21] MEDS: cloNIDine HCL 0.1 MG TAB PO PRN (08:55)
[2021-09-21 09:00] VITALS: BP 181/79
[2021-09-21] MEDS ORDERED: cefTRIAXone 1GM/50ML D5W 50 ML IV SCH (09:00)
[2021-09-21 10:00] VITALS: BP 108/59
[2021-09-21] MEDS ORDERED: DexAMETHasone SOD PHOS 10MG/1ML VIAL INJ IV SCH (10:00)
[2021-09-21] MEDS ORDERED: ZINC SULFATE 220mg CAP or TAB PO SCH (10:00)
[2021-09-21] MEDS ORDERED: AZITHROMYCIN 500MG/ 250ML 250 ML IV SCH (10:00)
[2021-09-21] MEDS ORDERED: SODIUM CHLORIDE 0.9% 1,000 ML IV ONE (12:30)
[2021-09-21 13:00] VITALS: BP 117/65
[2021-09-21] MEDS: HYDROcodone-ACET 5/325MG TAB PO PRN (13:02)
[2021-09-21 17:00] VITALS: BP 118/68
[2021-09-21 21:34] VITALS: BP 108/65
[2021-09-21] MEDS: DOXYCYCLINE 100 MG TAB/CAP PO SCH (22:14)
[2021-09-22 04:43] VITALS: BP 110/63
[2021-09-22] MEDS: MEMANTINE HCL 5 MG TAB PO SCH (08:56)
[2021-09-22] MEDS: DOXYCYCLINE 100 MG TAB/CAP PO SCH ×2 (08:56→22:26)
[2021-09-22 09:00] VITALS: BP 105/64
[2021-09-22] MEDS ORDERED: CEFEPIME 1 GM in SODIUM CHL 0.9% 50 ML IV ONE (09:00)
[2021-09-22] MEDS ORDERED: FUROSEMIDE 20 MG/2 ML VIAL IV ONE (09:00)
[2021-09-22] MEDS ORDERED: VANCOMYCIN PER PHARMACY 0 MG IV SCH (09:00)
[2021-09-22] MEDS ORDERED: VANCOMYCIN 1GM/250ML 250 ML IV ONE (09:45)
[2021-09-22 13:00] VITALS: BP 125/56
[2021-09-22] MEDS ORDERED: ENOXAPARIN SOD 40 MG/0.4 ML SYRINGE SC ONE (16:30)
[2021-09-22] MEDS: CEFEPIME 1 GM in SODIUM CHL 0.9% 50 ML IV SCH (16:54)
[2021-09-22 17:00] VITALS: BP 114/42
[2021-09-22 21:54] VITALS: BP 168/72
[2021-09-22] MEDS: DONEPEZIL HYDROCHLORIDE 5 MG TAB PO SCH (22:26)
[2021-09-23] MEDS: HYDROcodone-ACET 5/325MG TAB PO PRN ×2 (01:19→21:19)
[2021-09-23] MEDS: CEFEPIME 1 GM in SODIUM CHL 0.9% 50 ML IV SCH ×3 (01:43→18:30)
[2021-09-23 05:00] VITALS: BP 148/75
[2021-09-23 07:28] LABS: BUN/Creatinine Ratio 40.5; Calcium 7.5 mg/dL (8.5-10.1); Potassium 3.9 mmol/L (3.5-5.1)
[2021-09-23 09:00] VITALS: BP 154/78
[2021-09-23] MEDS: VANCOMYCIN 1GM/250ML 250 ML IV SCH (09:41)
[2021-09-23] MEDS: MEMANTINE HCL 5 MG TAB PO SCH (09:42)
[2021-09-23] MEDS: DOXYCYCLINE 100 MG TAB/CAP PO SCH ×2 (09:42→21:10)
[2021-09-23] MEDS: ENOXAPARIN SOD 40 MG/0.4 ML SYRINGE SC SCH (09:43)
[2021-09-23 10:18] LABS: Basophils # (auto) 0 10 ^3/uL (0-0.2); Basophils % (auto) 0.2 % (0.0-2.0); Eosinophils # (auto) 0.3 10 ^3/uL (0-0.8); Eosinophils % (auto) 2.9 % (0.0-7.0); Hematocrit 37.2 % (41.0-53.0); Hemoglobin 12.2 g/dL (13.5-17.5); Lymphocytes # (auto) 0.6 10 ^3/uL (0.4-5.4); Lymphocytes % (auto) 5.8 % (10.0-50.0); Mean Corpuscular Hemoglobin 29.6 pg (28.0-32.0); Mean Corpuscular Hgb Conc. 32.9 g/dL (32.0-36.0); Monocytes # (auto) 0.8 10 ^3/uL (0-1.3); Monocytes % (auto) 7.5 % (0.0-12.0); Neutrophils # (auto) 8.9 10 ^3/uL (1.6-8.6); Neutrophils % (auto) 83.6 % (37.0-80.0); Red Blood Cells 4.13 10^6/uL (4.5-5.90); Red Cell Distribution Width 15.4 % (11.8-14.3); White Blood Cell 10.7 10^3/uL (4.4-10.8)
[2021-09-23 13:00] VITALS: BP 153/80
[2021-09-23 17:00] VITALS: BP 151/77
[2021-09-23] MEDS: DONEPEZIL HYDROCHLORIDE 5 MG TAB PO SCH (21:10)
[2021-09-23 22:00] VITALS: BP 147/73
[2021-09-24] MEDS: CEFEPIME 1 GM in SODIUM CHL 0.9% 50 ML IV SCH ×4 (00:26→19:44)
[2021-09-24] MEDS: VANCOMYCIN 1GM/250ML 250 ML IV SCH ×2 (01:33→20:51)
[2021-09-24 05:00] VITALS: BP 171/92
[2021-09-24 05:34] LABS: Basophils # (auto) 0 10 ^3/uL (0-0.2); Basophils % (auto) 0.1 % (0.0-2.0); Eosinophils # (auto) 0.4 10 ^3/uL (0-0.8); Hematocrit 35.9 % (41.0-53.0); Hemoglobin 11.9 g/dL (13.5-17.5); Lymphocytes # (auto) 0.8 10 ^3/uL (0.4-5.4); Lymphocytes % (auto) 6.7 % (10.0-50.0); Mean Corpuscular Hemoglobin 29.6 pg (28.0-32.0); Mean Corpuscular Hgb Conc. 33.3 g/dL (32.0-36.0); Monocytes # (auto) 0.7 10 ^3/uL (0-1.3); Neutrophils # (auto) 10.4 10 ^3/uL (1.6-8.6); Neutrophils % (auto) 84.2 % (37.0-80.0); Red Blood Cells 4.03 10^6/uL (4.5-5.90); Red Cell Distribution Width 15.4 % (11.8-14.3); White Blood Cell 12.3 10^3/uL (4.4-10.8)
[2021-09-24] MEDS: cloNIDine HCL 0.1 MG TAB PO PRN (05:37)
[2021-09-24 06:16] LABS: Calcium 7.2 mg/dL (8.5-10.1)
[2021-09-24] MEDS: ALBUTEROL SULF 2.5 MG/0.5ML(0.5%) NEB SOLN NEB PRN (07:58)
[2021-09-24 08:05] VITALS: BP 140/70
[2021-09-24 09:00] VITALS: BP 140/73
[2021-09-24] MEDS: MEMANTINE HCL 5 MG TAB PO SCH (12:44)
[2021-09-24] MEDS: ENOXAPARIN SOD 40 MG/0.4 ML SYRINGE SC SCH (12:44)
[2021-09-24] MEDS: DOXYCYCLINE 100 MG TAB/CAP PO SCH ×2 (12:44→21:17)
[2021-09-24 13:30] VITALS: BP 141/76
[2021-09-24] MEDS ORDERED: FUROSEMIDE 20 MG/2 ML VIAL IV ONE (14:00)
[2021-09-24 16:34] VITALS: BP 136/80
[2021-09-24] MEDS: DONEPEZIL HYDROCHLORIDE 5 MG TAB PO SCH (21:17)
[2021-09-24 22:00] VITALS: BP 140/76
[2021-09-25] MEDS: CEFEPIME 1 GM in SODIUM CHL 0.9% 50 ML IV SCH ×2 (01:09→09:14)
[2021-09-25 05:00] VITALS: BP 156/75
[2021-09-25 06:39] LABS: BUN/Creatinine Ratio 25.3; Calcium 7.8 mg/dL (8.5-10.1)
[2021-09-25] MEDS: ALBUTEROL SULF 2.5 MG/0.5ML(0.5%) NEB SOLN NEB PRN (07:08)
[2021-09-25 08:40] VITALS: BP 169/72
[2021-09-25] MEDS: MEMANTINE HCL 5 MG TAB PO SCH (09:14)
[2021-09-25] MEDS: DOXYCYCLINE 100 MG TAB/CAP PO SCH (09:14)
[2021-09-25] MEDS: ENOXAPARIN SOD 40 MG/0.4 ML SYRINGE SC SCH (09:15)
[2021-09-25] MEDS ORDERED: FUROSEMIDE 20 MG/2 ML VIAL IV SCH (10:00)
[2021-09-25 11:52] VITALS: BP 170/85
[2021-09-25] MEDS: cloNIDine HCL 0.1 MG TAB PO PRN (12:15)
[2021-09-25] MEDS ORDERED: hydrALAZINE HCL 20 MG/ML VL IV PRN (13:00)
[2021-09-25] MEDS ORDERED: IPRATROPIUM BROM 0.5 MG/2.5ML INH SOL NEB PRN (13:00)
[2021-09-25] MEDS ORDERED: ALBUTEROL SULF 2.5 MG/0.5ML(0.5%) NEB SOLN NEB PRN (13:00)
[2021-09-25] MEDS: MEROPENEM 1GM IVPB 100 ML IV SCH (14:00)
[2021-09-25 16:38] VITALS: BP 142/82
[2021-09-25] MEDS: DONEPEZIL HYDROCHLORIDE 5 MG TAB PO SCH (21:00)
[2021-09-25 22:00] VITALS: BP 175/103
[2021-09-25 22:32] VITALS: BP 142/69
[2021-09-26] MEDS: MEROPENEM 1GM IVPB 100 ML IV SCH (02:43)
[2021-09-26 03:55] VITALS: BP 115/85
[2021-09-26] MEDS ORDERED: PANTOPRAZOLE 40 MG TAB PO SCH (10:00)
== END 2021-09-26 04:34 | DRG 871 ==
LOC: EDBD 17:42 → ER 17:42 → TELE 21:46 → TELE-WESTW 09-21 08:37
PROVIDERS: ADMIT Nurse Practitioner; ATTEND Internal Medicine
PROC: 5A09457 Assistance with Respiratory Ventilation, 24-96 Consecutive Hours, Continuous Positive Airway Pressure (ICD-10-PCS; principal; 2021-09-24)
DX: A41.9 Sepsis, unspecified organism (principal); J18.9 Pneumonia, unspecified organism; J96.01 Acute respiratory failure with hypoxia; E43 Unspecified severe protein-calorie malnutrition; N17.9 Acute kidney failure, unspecified; F03.90 Unspecified dementia, unspecified severity, without behavioral disturbance, psychotic disturbance, mood disturbance, and anxiety; Z66 Do not resuscitate; E11.9 Type 2 diabetes mellitus without complications; I10 Essential (primary) hypertension; J43.9 Emphysema, unspecified; K44.9 Diaphragmatic hernia without obstruction or gangrene; M19.011 Primary osteoarthritis, right shoulder; M19.012 Primary osteoarthritis, left shoulder; F32.A Depression, unspecified; F41.9 Anxiety disorder, unspecified; Z20.822 Contact with and (suspected) exposure to COVID-19; Z82.49 Family history of ischemic heart disease and other diseases of the circulatory system; Z86.73 Personal history of transient ischemic attack (TIA), and cerebral infarction without residual deficits; Z87.891 Personal history of nicotine dependence; Z90.49 Acquired absence of other specified parts of digestive tract; Z98.61 Coronary angioplasty status; Z68.23 Body mass index [BMI] 23.0-23.9, adult
CPT/HCPCS: 36415; 36600; 70450; 71045; 71275; 80048; 80053; 80202; 81001; 82565; 82728; 82805; 83605; 83690; 83735; 83880; 84484; 85025; 85379; 85610; 85730; 86738; 87040; 87070; 87081; 87205; 87278; 87426; 87804; 93005; 93306; 93970; 94640; 94660; 96365; 96366; 96368; 96375; G0378; J0696; J1100; J2185